=== PATIENT | male | born 1965 | race Caucasian/White ===

== ENCOUNTER 2020-06-05 07:41 | Emergency (ER) | payer OTHER ==
[~2020-06-05] VITALS: Ht 172.7 cm; Wt 83.0 kg
[~2020-06-05 07:41] MED LIST: APAP/HYDROCODON1 T13 PO; COL100 PO; FLO4 PO; LAC PO; LIPI10 PO; MAC100 PO; SYN25 PO
[2020-06-05 08:21] VITALS: Ht 172.7 cm; Wt 83.0 kg
[2020-06-05 09:31] LABS: CARBON DIOXIDE 27.7 mmol/L (21-32); CREATININE SERUM 1.7 mg/dL (0.7-1.3); POTASSIUM SERUM 3.8 mmol/L (3.5-5.1)
[2020-06-05 09:35] LABS: ALBUMIN 4.1 g/dL (3.4-5.0); BILIRUBIN TOTAL 1.3 mg/dL (0.20-1.00); TOTAL PROTEIN, SERUM 7.7 g/dL (6.4-8.2)
[2020-06-05 09:53] LABS: UA SPECIFIC GRAVITY >=1.030 (1.005-1.035); microscopic required? YES; urine erythrocyte 3+ (NEGATIVE)
[2020-06-05 10:13] LABS: BASOPHIL % 0.3 % (0-2); PLATELET COUNT 165 x10^3mcL (130-400); RED CELL DISTRIBUTION WIDTH 12.9 % (11.5-14.5)
[2020-06-05 11:04] VITALS: BP 131/84
== END 2020-06-05 11:04 | disposition home or self-care (01) ==
LOC: ED 07:41
PROVIDERS: Emergency Medicine
DX: N23 Unspecified renal colic (principal); E78.5 Hyperlipidemia, unspecified; Z87.442 Personal history of urinary calculi; Z98.890 Other specified postprocedural states
CPT/HCPCS: J1885; J2405